=== PATIENT | male | born 1995 | race Hispanic/Latino ===

== ENCOUNTER 2019-01-24 14:13 | Emergency (ER) | payer BC, SELFPAY ==
[2019-01-24 15:17] LABS: Absolute Lymphocytes (CBC) 1.5 K/uL (0.7-4.9); Basophils % 0.4 % (0-1.3); Hematocrit 43.1 % (39.6-49.0); Lymphocytes % 27.9 % (15.3-44.8); MPV 8.5 fL (7.6-11.3)
[2019-01-24 15:29] LABS: Albumin 4.1 g/dL (3.4-5.0); Bilirubin Direct 0.1 mg/dL (0-0.2); Bilirubin Total 0.6 mg/dL (0.2-1.0); Potassium 3.9 mmol/L (3.5-5.1); Protein, Total 7.3 g/dL (6.4-8.2)
[2019-01-24 15:37] LABS: Protime INR 1.15
--- NOTE | 2019-01-24 15:56 | ER ---
Nurse's Notes [facility] Name: Gurdeep Morfin Age: 23 yrs Sex: Male : 1995 Arrival Date: 01/24/2019 Time: 14:16 Bed 25 Private MD: Diagnosis: Epigastric pain Presentation: 01/24 14:31 Presenting complaint: Patient states: "I've been having a lot of stomach problems and aj1 heart burn and I haven't been eating because of it and the other I threw up blood and I had a bloody stool" Reports bloody stool was yesterday and vomiting blood was the day before. Patient denies bloody stools or vomiting in the past 24 hours. Denies fever. Denies pain at this time. Transition of care: patient was not received from another setting of care. Onset of symptoms was January 2019. Risk Assessment: Do you want to hurt yourself or someone else? Patient reports no desire to harm self or others. Initial Sepsis Screen: Does the patient meet any 2 criteria? No. Patient's initial sepsis screen is negative. Does the patient have a suspected source of infection? No. Patient's initial sepsis screen is negative. Care prior to arrival: None. 14:31 Method Of Arrival: Ambulatory aj1 14:31 Acuity: HANNAH 3 aj1 Triage Assessment: 14:33 General: Appears in no apparent distress. comfortable, Behavior is calm, cooperative, aj1 appropriate for age. Pain: Denies pain. Neuro: Level of Consciousness is awake, alert, obeys commands, Oriented to person, place, time, situation. Cardiovascular: Patient's skin is warm and dry. Respiratory: Airway is patent Respiratory effort is even, unlabored, Respiratory pattern is regular, symmetrical. GI: Reports bloody stool, vomiting. Historical: - Allergies: 14:33 No Known Allergies; aj1 - Home Meds: 14:33 None [Active]; aj1 - PMHx: 14:33 None; aj1 - PSHx: 14:33 None; aj1 - Immunization history:: Flu vaccine is not up to date. - Social history:: Smoking status: Patient/guardian denies using tobacco. - Ebola Screening: : Patient denies travel to an Ebola-affected area in the 21 days before illness onset. Screenin:27 Abuse screen: Denies threats or abuse. Denies injuries from another. Abuse screen: mg2 Denies threats or abuse. Nutritional screening: No deficits noted. Tuberculosis screening: No symptoms or risk factors identified. Fall Risk IV access (20 points). Assessment: 15:27 General: Appears in no apparent distress. comfortable, Behavior is calm, cooperative. mg2 Pain: Complains of pain in abdomen Pain does not radiate. Pain currently is 5 out of 10 on a pain scale. Quality of pain is described as aching, Pain began gradually, 2 weeks now Is intermittent. Neuro: Level of Consciousness is awake, alert, obeys commands, Oriented to person, place, time, situation. Cardiovascular: Capillary refill. Respiratory: Airway is patent Respiratory effort is even, unlabored, Respiratory pattern is regular, symmetrical. GI: Reports upper abdominal pain, bloody stool, vomiting. : No signs and/or symptoms were reported regarding the genitourinary system. EENT: No signs and/or symptoms were reported regarding the EENT system. Derm: Skin is intact, is healthy with good turgor, Skin is pink, warm \\T\\ dry. normal. Musculoskeletal: Circulation, motion, and sensation intact. Capillary refill < 3 seconds. Vital Signs: 14:33 BP 136 / 86; Pulse 55; Resp 16; Temp 97.7; Pulse Ox 96% on R/A; Weight 81.65 kg (R); aj1 Height 6 ft. 1 in. (185.42 cm) (R); Pain 0/10; 16:03 BP 125 / 78; Pulse 60; Resp 18; Temp 98; Pulse Ox 100% on R/A; mg2 14:33 Body Mass Index 23.75 (81.65 kg, 185.42 cm) aj1 ED Course: 14:16 Patient arrived in ED. as 14:33 Triage completed. aj1 14:33 Arm band placed on Patient placed in waiting room, Patient notified of wait time. aj1 14:53 Vern Cook, YARELIS is Primary Nurse. rv 14:53 Lars Hernandez PA is PHCP. cp 14:54 Jason Elena MD is Attending Physician. cp 15:27 No provider procedures requiring assistance completed. Inserted saline lock: 20 gauge mg2 in left antecubital area, using aseptic technique. Blood collected. 15:28 Patient has correct armband on for positive identification. mg2 15:55 Vicente Elizabeth MD is Referral Physician. cp 16:02 IV discontinued, intact, bleeding controlled, No redness/swelling at site. Pressure mg2 dressing applied. Administered Medications: No medications were administered Outcome: 15:55 Discharge ordered by MD. cp 16:03 Discharged to home ambulatory, with family. mg2 16:03 Condition: stable 16:03 Discharge instructions given to patient, family, Instructed on discharge instructions, follow up and referral plans. medication usage, Demonstrated understanding of instructions, follow-up care, medications, Prescriptions given X 1. 16:08 Patient left the ED. mg2 Signatures: She Pace RN RN aj1 Irma Santiago as Lars Hernandez PA PA cp Mitul Jeffrey, RN RN mg2 Vern Cook RN RN rv
--- NOTE | 2019-01-24 15:57 | EDPHYS ---
Physician Documentation [facility] Name: Gurdeep Morfin Age: 23 yrs Sex: Male : 1995 Arrival Date: 01/24/2019 Time: 14:16 Bed 25 Private MD: ED Physician Jason Elena HPI: 01/24 15:00 This 23 yrs old Male presents to ER via Ambulatory with complaints of cp Vomiting, Bloody Stools. 15:00 The patient presents with abdominal pain in the epigastric area. cp 15:00 Onset: The symptoms/episode began/occurred gradually, no pain now. The symptoms do not cp radiate. Associated signs and symptoms: Pertinent positives: anorexia, vomiting, noticed blood in vomitus 2 days and red blood with bowel movement yesterday, Pertinent negatives: constipation, diarrhea, dysuria, fever. The symptoms are described as waxing/waning. Severity of pain: in the emergency department the pain has resolved. Historical: - Allergies: 14:33 No Known Allergies; aj1 - Home Meds: 14:33 None [Active]; aj1 - PMHx: 14:33 None; aj1 - PSHx: 14:33 None; aj1 - Immunization history:: Flu vaccine is not up to date. - Social history:: Smoking status: Patient/guardian denies using tobacco. - Ebola Screening: : Patient denies travel to an Ebola-affected area in the 21 days before illness onset. ROS: 15:05 Constitutional: Negative for body aches, chills, fever, poor PO intake, weight loss. cp 15:05 Eyes: Negative for injury, pain, redness, and discharge. cp 15:05 ENT: Negative for drainage from ear(s), ear pain, sore throat, difficulty swallowing, difficulty handling secretions. 15:05 Cardiovascular: Negative for chest pain, palpitations. 15:05 Respiratory: Negative for cough, shortness of breath, wheezing. 15:05 Abdomen/GI: Positive for abdominal pain, anorexia, hematemesis, rectal bleeding, Negative for diarrhea, constipation. 15:05 Back: Negative for radiated pain. 15:05 : Negative for urinary symptoms, testicular pain 15:05 Skin: Negative for rash. 15:05 Neuro: Negative for altered mental status, headache, weakness. 15:05 All other systems are negative. Exam: 15:15 Constitutional: The patient appears in no acute distress, alert, awake, non-toxic, well cp developed, well nourished. 15:15 Head/Face: Normocephalic, atraumatic. cp 15:15 Eyes: Periorbital structures: appear normal, Conjunctiva: normal, no exudate, no injection, Sclera: no appreciated abnormality, Lids and lashes: appear normal, bilaterally. 15:15 ENT: External ear(s): are unremarkable, Nose: is normal, Mouth: is normal, Posterior pharynx: is normal, airway is patent, no erythema, no exudate. 15:15 Chest/axilla: Inspection: normal, Palpation: is normal, no crepitus, no tenderness. 15:15 Cardiovascular: Rate: bradycardic, Rhythm: regular. 15:15 Respiratory: the patient does not display signs of respiratory distress, Respirations: normal, no use of accessory muscles, no retractions, no splinting, no tachypnea, labored breathing, is not present, Breath sounds: are clear throughout, no decreased breath sounds, no stridor, no wheezing. 15:15 Abdomen/GI: Inspection: abdomen appears normal, Bowel sounds: active, all quadrants, Palpation: abdomen is soft and non-tender, in all quadrants, rebound tenderness, is not appreciated, voluntary guarding, is not appreciated, involuntary guarding, is not appreciated, Rectal exam: Stool: brown, guaiac negative. Vital Signs: 14:33 BP 136 / 86; Pulse 55; Resp 16; Temp 97.7; Pulse Ox 96% on R/A; Weight 81.65 kg (R); aj1 Height 6 ft. 1 in. (185.42 cm) (R); Pain 0/10; 16:03 BP 125 / 78; Pulse 60; Resp 18; Temp 98; Pulse Ox 100% on R/A; mg2 14:33 Body Mass Index 23.75 (81.65 kg, 185.42 cm) aj1 MDM: 14:58 Patient medically screened. cp 15:00 Differential diagnosis: cholecystitis, Cholelithiasis, gastritis, gastroesophageal cp reflux disease, GI Bleed, pancreatitis, Peptic Ulcer Disease, Perf. Duodenal Ulcer, Perf. Gastric Ulcer. 15:55 Data reviewed: vital signs, nurses notes, lab test result(s), and as a result, I will cp discharge patient. 15:55 Counseling: I had a detailed discussion with the patient and/or guardian regarding: the cp historical points, exam findings, and any diagnostic results supporting the discharge/admit diagnosis, lab results, to return to the emergency department if symptoms worsen or persist or if there are any questions or concerns that arise at home. ED course: VSS. Recommend daily use of PPI and f/u with GI if symptoms persists. 01/24 14:54 Order name: Basic Metabolic Panel; Complete Time: 15:48 mg2 01/24 15:49 Interpretation: Normal except: CL 108; GLUC 73; GFR 89. cp 01/24 14:54 Order name: CBC with Diff; Complete Time: 15:48 mg2 01/24 14:54 Order name: Creatinine for Radiology; Complete Time: 15:48 mg2 01/24 14:54 Order name: Hepatic Function; Complete Time: 15:48 mg2 01/24 14:54 Order name: Lipase; Complete Time: 15:48 mg2 01/24 14:54 Order name: PT-INR; Complete Time: 15:48 cp 01/24 14:54 Order name: IV Saline Lock; Complete Time: 15:24 mg2 01/24 14:54 Order name: Labs collected and sent; Complete Time: 15:24 mg2 Administered Medications: No medications were administered Disposition: 01/24/19 15:55 Discharged to Home. Impression: Epigastric pain. - Condition is Stable. - Discharge Instructions: Abdominal Pain, Adult, Gastroesophageal Reflux Disease, Adult. - Prescriptions for Protonix 40 mg Oral Tablet - take 1 tablet by ORAL route once daily; 30 tablet. - Medication Reconciliation Form, Thank You Letter, Antibiotic Education, Prescription Opioid Use form. - Follow up: Vicente Elizabeth MD; When: 1 week; Reason: symptoms continue. - Problem is new. - Symptoms have improved. Addendum: 01/27/2019 08:47 Co-signature as Attending Physician, Jason Elena MD I agree with the assessment and k dr plan of care. Signatures: Dispatcher [employer] EDHI She Pace RN RN aj1 Jason Elena MD MD kdr Page, Corey, PA PA Mitul Jeffrey RN RN mg2 Corrections: (The following items were deleted from the chart) 01/24 16:08 15:55 01/24/2019 15:55 Discharged to Home. Impression: Epigastric pain. Condition is mg2 Stable. Forms are Medication Reconciliation Form, Thank You Letter, Antibiotic Education, Prescription Opioid Use. Follow up: Vicente Elizabeth; When: 1 week; Reason: symptoms continue. Problem is new. Symptoms have improved. cp
[2019-01-24 16:21] VITALS: BP 125/78; TEMP 98; O2SAT 100
== END 2019-01-24 16:08 | disposition home or self-care (01) ==
LOC: ER 14:13
DX: R10.13 Epigastric pain (principal)
CPT/HCPCS: 36415; 80048; 80076; 83690; 85025; 85610; 99283